=== PATIENT | female | born 1950 | race Caucasian/White ===

== ENCOUNTER → 2017-04-29 | Outpatient (CLI) | payer MEDICARE | END | disposition home or self-care (01) | LOC: CVU 14:22 | PROVIDERS: ATTEND Nurse Practitioner | DX: R20.2 Paresthesia of skin (principal); R20.0 Anesthesia of skin; M79.661 Pain in right lower leg; M79.662 Pain in left lower leg; I73.9 Peripheral vascular disease, unspecified; E11.9 Type 2 diabetes mellitus without complications; Z85.41 Personal history of malignant neoplasm of cervix uteri; Z87.891 Personal history of nicotine dependence | CPT/HCPCS: 93922 ==

== ENCOUNTER 2017-09-10 08:55 | Emergency (ER) | payer MEDICARE ==
[~2017-09-10] VITALS: Ht 165.1 cm; Wt 72.7 kg
[2017-09-10 09:05] VITALS: BP 125/74
[2017-09-10] MEDS ORDERED: OXYcodone/APAP 5/325MG TABLET ONE (09:48)
[2017-09-10] MEDS ORDERED: OXYcodone/APAP 5/325MG TABLET PO ONE (10:00)
== END 2017-09-10 10:53 | disposition home or self-care (01) ==
LOC: ED 10:17
DX: S83.412A Sprain of medial collateral ligament of left knee, initial encounter (principal); I10 Essential (primary) hypertension; E11.9 Type 2 diabetes mellitus without complications; X50.1XXA Overexertion from prolonged static or awkward postures, initial encounter; Y93.H1 Activity, digging, shoveling and raking; Y92.89 Other specified places as the place of occurrence of the external cause; Y99.8 Other external cause status; Z87.891 Personal history of nicotine dependence; Z90.710 Acquired absence of both cervix and uterus
CPT/HCPCS: 99284

== ENCOUNTER → 2017-12-02 | Outpatient (CLI) | payer MEDICARE | END | disposition home or self-care (01) | LOC: CFH 13:21 | PROVIDERS: ATTEND Orthopaedic Surgery | DX: S83.232D Complex tear of medial meniscus, current injury, left knee, subsequent encounter (principal); X58.XXXD Exposure to other specified factors, subsequent encounter ==

== ENCOUNTER → 2018-01-28 | Outpatient (CLI) | payer MEDICARE ==
[2018-01-28 14:55] LABS: BASOPHILS # (AUTO) 0.05 x10^3/uL (0-0.1); BASOPHILS % (AUTO) 1 % (0-1); EOSINOPHILS # (AUTO) 0.18 x10^3/uL (0-0.4); EOSINOPHILS % (AUTO) 3 % (1-7); LYMPHOCYTES # (AUTO) 2.91 x10^3/uL (1-3.4); LYMPHOCYTES % (AUTO) 42 % (22-44); MD NO; MEAN CORPUSCULAR HEMOGLOBIN 30.8 pg (27.0-34.8); MEAN CORPUSCULAR HGB CONC 33.9 g/dL (32.4-35.8); MEAN CORPUSCULAR VOLUME 90.8 fL (80-100); MONOCYTES # (AUTO) 0.57 x10^3/uL (0.2-0.8); MONOCYTES % (AUTO) 8 % (2-9); NEUTROPHILS # (AUTO) 3.26 x10^3/uL (1.8-6.8); NEUTROPHILS % (AUTO) 47 % (42-75); PLATELET COUNT 199 x10^3/uL (130-400); RED BLOOD COUNT 4.49 x10^6/uL (3.82-5.3); RED CELL DISTRIBUTION WIDTH 13.3 % (9.6-15.2)
[2018-01-28 15:09] LABS: ALANINE AMINOTRANSFERASE 20 U/L (12-78); ALBUMIN 3.8 g/dL (3.4-5.0); ANION GAP 7 mmol/L (5-15); CALCIUM 8.8 mg/dL (8.5-10.1); CHLORIDE 113 mmol/L (98-107); CREATININE 2.06 mg/dL (0.55-1.02)
[2018-01-28 15:11] LABS: ALKALINE PHOSPHATASE 72 U/L (45-117); BILIRUBIN,TOTAL 0.4 mg/dL (0.2-1.0); TOTAL PROTEIN 7.8 g/dL (6.4-8.2)
[2018-01-28 15:17] LABS: INTERNATIONAL NORMALIZED RATIO 1.01 (0.93-1.1); PROTHROMBIN TIME 10.5 Seconds (9.6-11.5)
[2018-01-28 15:31] LABS: HEMOGLOBIN A1C 5.9 % (4.2-6.3)
== END | disposition home or self-care (01) ==
LOC: STAR 13:26
PROVIDERS: ATTEND Orthopaedic Surgery
DX: Z01.818 Encounter for other preprocedural examination (principal); M17.12 Unilateral primary osteoarthritis, left knee
CPT/HCPCS: 36415; 80053; 83036; 85025; 85610; 85730; 87081; 93005

== ENCOUNTER 2018-10-04 16:05 | Observation (INO) | payer MEDICARE ==
[~2018-10-04] VITALS: Ht 167.6 cm; Wt 65.8 kg
[~2018-10-04 16:05] MED LIST: ASPI-496 PO; DULA0.75 INJ; GABA300C10 PO; LISI1TAB5 PO; LORA-247 PO; MELO7.5T31 PO; OMEP20TA62 PO; OXYB5TAB7 PO; OXYC5TAB3 PO; SIMV20TA3 PO; SUMA100T3 PO; TOPI100T8 PO; TRAM50TA2 PO
[2018-10-04] MEDS ORDERED: NITROGLYCERIN SINGLE TAB 0.4 MG SL PRN ×2 (16:30→17:00)
[2018-10-04] MEDS ORDERED: SODIUM CHLORIDE FLUSH 10ML SYR IVF ONE (16:30)
[2018-10-04] MEDS ORDERED: PLEASE ENTER HEIGHT AND WEIGHT MC SCH (16:30)
[2018-10-04] MEDS ORDERED: MORPHINE SULFATE 4 MG/ML, 1ML IVPush PRN ×2 (16:30→17:00)
[2018-10-04] MEDS ORDERED: KETOROLAC 30 MG/1 ML ONE (16:36)
[2018-10-04] MEDS ORDERED: MORPHINE SULFATE 4 MG/ML, 1ML ONE (16:37)
--- NOTE | 2018-10-04 16:37 | NUR ---
EDT AT BEDSIDE FOR EKG. DR. SHEPARD AT BEDSIDE. PT WITH ACUTE CP.
[2018-10-04 16:44] LABS: ALBUMIN 3.6 g/dL (3.4-5.0); ANION GAP 5 mmol/L (5-15); CALCIUM 8.4 mg/dL (8.5-10.1); CHLORIDE 119 mmol/L (98-107); CREATININE 1.53 mg/dL (0.55-1.02)
[2018-10-04 16:47] LABS: TROPONIN I < 0.015 ng/mL (0.000-0.045)
[2018-10-04] MEDS ORDERED: KETOROLAC 30 MG/1 ML IVPush ONE (17:00)
--- NOTE | 2018-10-04 17:02 | NUR ---
PT STATES PAIN IMPROVED SINCE MEDICATED. CONTINUES TO HAVE BRIEF EPISODES OF CP BUT LESS SEVERE IN NATURE.
--- NOTE | 2018-10-04 17:34 | NUR ---
REPORT TO ANETTE HUI TO BE TRANSPORTED
--- NOTE | 2018-10-04 17:37 | NUR ---
HOSPITALIST AT BEDSIDE
[2018-10-04 17:54] VITALS: BP 151/72
[2018-10-04] MEDS ORDERED: SUMATRIPTAN 100 MG TABLET PO PRN (18:00)
[2018-10-04] MEDS ORDERED: ACETAMINOPHEN 325 MG TABLET PO PRN (18:00)
[2018-10-04] MEDS ORDERED: SIMVASTATIN 20 MG TABLET PO SCH (21:00)
[2018-10-04] MEDS ORDERED: OXYBUTYNIN CHLORIDE 5 MG TABLET PO SCH (21:00)
[2018-10-04 21:21] VITALS: BP 114/64
[2018-10-04] MEDS: TOPIRAMATE 100 MG TABLET PO SCH (21:43)
[2018-10-04] MEDS: INSULIN LISPRO 100 UNITS/ML, PEN SQ-INSULIN SCH (21:48)
[2018-10-04] MEDS: HEPARIN 5,000 UNITS/ML, 1ML SQ SCH (21:50)
[2018-10-04 22:05] LABS: TROPONIN I < 0.015 ng/mL (0.000-0.045)
[2018-10-04 22:58] VITALS: BP 124/74
[2018-10-04] MEDS ORDERED: morphine SULFATE 10 MG/ML, 1ML IVPush ONE (23:30)
[2018-10-05 01:50] VITALS: BP 108/60
[2018-10-05 05:16] LABS: ANION GAP 6 mmol/L (5-15); CALCIUM 8.2 mg/dL (8.5-10.1); CHLORIDE 117 mmol/L (98-107)
[2018-10-05 05:20] LABS: CREATININE 1.61 mg/dL (0.55-1.02); TROPONIN I < 0.015 ng/mL (0.000-0.045)
[2018-10-05 06:43] LABS: BASOPHILS # (AUTO) 0.04 x10^3/uL (0-0.1); BASOPHILS % (AUTO) 1 % (0-1); EOSINOPHILS # (AUTO) 0.23 x10^3/uL (0-0.4); EOSINOPHILS % (AUTO) 3 % (1-7); LYMPHOCYTES # (AUTO) 2.51 x10^3/uL (1-3.4); LYMPHOCYTES % (AUTO) 37 % (22-44); MD NO; MEAN CORPUSCULAR HEMOGLOBIN 31.2 pg (27.0-34.8); MEAN CORPUSCULAR HGB CONC 34.1 g/dL (32.4-35.8); MEAN CORPUSCULAR VOLUME 91.7 fL (80-100); MEAN PLATELET VOLUME 10.9 fL (7.4-10.4); MONOCYTES # (AUTO) 0.49 x10^3/uL (0.2-0.8); MONOCYTES % (AUTO) 7 % (2-9); NEUTROPHILS # (AUTO) 3.51 x10^3/uL (1.8-6.8); NEUTROPHILS % (AUTO) 52 % (42-75); PLATELET COUNT 179 x10^3/uL (130-400); RED BLOOD COUNT 4.14 x10^6/uL (3.82-5.3); RED CELL DISTRIBUTION WIDTH 13.6 % (9.6-15.2)
[2018-10-05] MEDS: INSULIN LISPRO 100 UNITS/ML, PEN SQ-INSULIN SCH ×3 (07:00→16:00)
[2018-10-05 08:02] VITALS: BP 125/61
[2018-10-05] MEDS ORDERED: TOPIRAMATE 25 MG TABLET ONE (08:05)
[2018-10-05] MEDS: HEPARIN 5,000 UNITS/ML, 1ML SQ SCH (08:10)
[2018-10-05] MEDS: TOPIRAMATE 100 MG TABLET PO SCH (08:10)
[2018-10-05] MEDS ORDERED: OXYBUTYNIN CHLORIDE 5 MG TABLET PO SCH (09:00)
[2018-10-05] MEDS ORDERED: LORATADINE 10 MG TABLET PO SCH (09:00)
[2018-10-05 13:41] VITALS: BP 121/66
== END 2018-10-05 16:00 | disposition home or self-care (01) ==
LOC: ED 17:19 → 5SO 17:31 → INTOOBSV 17:31
PROVIDERS: ADMIT Hospitalist; ATTEND Hospitalist
DX: R07.89 Other chest pain (principal); I13.10 Hypertensive heart and chronic kidney disease without heart failure, with stage 1 through stage 4 chronic kidney disease, or unspecified chronic kidney disease; E11.22 Type 2 diabetes mellitus with diabetic chronic kidney disease; N18.3 Chronic kidney disease, stage 3 (moderate); G43.909 Migraine, unspecified, not intractable, without status migrainosus; D68.69 Other thrombophilia; Z79.899 Other long term (current) drug therapy; Z87.891 Personal history of nicotine dependence; Z96.652 Presence of left artificial knee joint; Z90.710 Acquired absence of both cervix and uterus
CPT/HCPCS: 36415; 71045; 78452; 80048; 82040; 82962; 83036; 84484; 85025; 93005; 93017; 96374; 96375; 96376; 99284; A9502; C9898; G0378; J1885; J2270; 99285